=== PATIENT | female | born 1985 | race African-American/Black ===

== ENCOUNTER 2025-05-20 16:01 | Emergency (ER) | payer OTHER ==
--- NOTE | 2025-05-20 16:29 | EDPHYS ---
Physician Documentation [facility] Name: Norma Sepulveda Age: 40 yrs Sex: Female : 1985 Arrival Date: 05/20/2025 Time: 16:01 Bed IW1 Private MD: ED Physician Humberto Clifton HPI: 05/20 16:31 This 40 yrs old Black Female presents to ER via Ambulatory with complaints of Flu sb4 Symptoms. 16:31 Patient reports nasal congestion, sinus pressure, ear fullness for a few days now. She sb4 states that her symptoms all began after being on a cruise. Denies any fever, chills, cough, nausea, vomiting, diarrhea. States that none of her friends that are on the cruise have similar symptoms. Denies any chest pain or shortness of breath. 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 - Infectious Disease History:: Denies. - Social history:: Smoking status: Patient denies any tobacco usage or history of. ROS: 16:31 Constitutional: Negative for fever, chills, and weight loss, sb4 16:31 ENT: Positive for sinus congestion, sinus pain, sore throat, 16:31 All other systems are negative, Exam: 16:31 Constitutional: This is a well developed, well nourished patient who is awake, alert, sb4 and in no acute distress. Eyes: Extra-ocular motions intact. Periorbital areas with no swelling, redness, or edema. Cardiovascular: Regular rate and rhythm with a normal S1 and S2. Respiratory: No increased work of breathing, no retractions or nasal flaring. Skin: Warm, dry with normal turgor. Normal color with no rashes, no lesions, and no evidence of cellulitis. 16:31 Head/face: Sinus tenderness, that is mild, is located over the right frontal sinus, left frontal sinus, right ethmoid sinus, left ethmoid sinus, right maxillary sinus and left maxillary sinus, 16:31 ENT: Posterior pharynx: Tonsils: bilaterally enlarged, no erythema, no exudate, no ulcerations, Vital Signs: 16:25 BP 150 / 97; Pulse 86; Resp 18; Temp 98.2(O); Pulse Ox 96% ; db MDM: 16:11 Medical Screening Exam initiated sb4 16:33 Data reviewed: vital signs, nurses notes, and as a result, I will discharge patient. sb4 Counseling: I had a detailed discussion with the patient and/or guardian regarding the historical points, exam findings, and any diagnostic results supporting the discharge/admit diagnosis, the need for outpatient follow up, for definitive care, to return to the emergency department if symptoms worsen or persist or if there are any questions or concerns that arise at home. 16:56 Test considered but Not performed: Labs: swabs not required, clinical diagnosis of sb4 sinusitis. X-ray: chest xray not indicated, very minor cough, only at night, breath sounds are clear on auscultation. Care significantly affected by the following chronic conditions: Hypertension, Obesity. Administered Medications: 16:59 Drug: Dexamethasone IM 10 mg IM once Route: IM; Site: right deltoid; db 17:03 Follow up: Response: No adverse reaction db Disposition Summary: 05/20/25 16:29 Discharge Ordered Notes: Location: Home sb4 Problem: new sb4 Symptoms: have improved sb4 Condition: Stable sb4 Diagnosis - Acute sinusitis, unspecified sb4 Followup: sb4 - With: Emergency Department - When: As needed - Reason: Trouble breathing, Worsening of condition Discharge Instructions: - Discharge Summary Sheet sb4 - Sinusitis, Adult, [id number] sb4 Forms: - Work release form sb4 - Antibiotic Education sb4 - Patient Portal Instructions sb4 - Leadership Thank You Letter sb4 Prescriptions: - Augmentin 875-125 mg Oral tablet - take 1 tablet ORAL route every 12 hours for 7 days; 14 tablet; Refills: 0, sb4 Product Selection Permitted Addendum: 05/30/2025 08:03 Co-signature as Attending Physician, Humberto Clifton MD I agree with the assessment and c bal plan of care. Signatures: Humberto Clifton MD MD cha Benton, Danielle, RN RN Josephine Rod PA-C PA-C sb4
--- NOTE | 2025-05-20 16:29 | ER ---
Nurse's Notes [facility] Name: Norma Sepulveda Age: 40 yrs Sex: Female : 1985 Arrival Date: 05/20/2025 Time: 16:01 Bed IW1 Private MD: Diagnosis: Acute sinusitis, unspecified Presentation: 05/20 16:25 Chief complaint: Patient states: COUGH, CONGESTION, COLD, PRESSURE IN EARS, SINCE db WEDNESDAY. STATES RETURNED BACK FROM A [place]UISE AND STARTED FEELING SICK. Coronavirus screen: Client denies travel out of the [place] in the last 14 days. At this time, the client does not indicate any symptoms associated with coronavirus-19. Ebola Screen: Patient negative for fever greater than or equal to 101.5 degrees Fahrenheit, and additional compatible Ebola Virus Disease symptoms Patient denies exposure to infectious person. Patient denies travel to an Ebola-affected area in the 21 days before illness onset. No symptoms or risks identified at this time. Initial Sepsis Screen: Does the patient meet any 2 criteria? No. Patient's initial sepsis screen is negative. Does the patient have a suspected source of infection? No. Patient's initial sepsis screen is negative. Risk Assessment: Do you want to hurt yourself or someone else? Patient reports no desire to harm self or others. Onset of symptoms was May 18, 2025. 16:25 Method Of Arrival: Ambulatory db 16:25 Acuity: JOEL 4 db Triage Assessment: 16:27 General: Appears in no apparent distress. uncomfortable, Behavior is calm, cooperative. db Pain: Complains of pain in face. EENT: Reports nasal congestion nasal discharge. Neuro: Level of Consciousness is awake, alert, obeys commands, Oriented to person, place, time, situation. Respiratory: Airway is patent Respiratory effort is even, unlabored, Respiratory pattern is regular, symmetrical. 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 - Infectious Disease History:: Denies. - Social history:: Smoking status: Patient denies any tobacco usage or history of. Screenin:03 [facility] ED Fall Risk Assessment (Adult) History of falling in the last 3 months, db including since admission No falls in past 3 months (0 pts) Confusion or Disorientation No (0 pts) Intoxicated or Sedated No (0 pts) Impaired Gait No (0 pts) Mobility Assist Device Used No (0 pt) Altered Elimination No (0 pt) Score/Fall Risk Level 0 - 2 = Low Risk Oriented to surroundings, Maintained a safe environment. Abuse screen: Denies threats or abuse. Denies injuries from another. Nutritional screening: No deficits noted. Tuberculosis screening: No symptoms or risk factors identified. Assessment: 17:03 Reassessment: Patient appears in no apparent distress at this time. Patient and/or db family updated on plan of care and expected duration. Pain level reassessed. Patient is alert, oriented x 3, equal unlabored respirations, skin warm/dry/pink. Vital Signs: 16:25 BP 150 / 97; Pulse 86; Resp 18; Temp 98.2(O); Pulse Ox 96% ; db ED Course: 16:10 Patient arrived in ED. cj3 16:11 [facility] Bianchi [facility] sb4 16:11 Humberto Clifton MD is Attending Physician. sb4 16:26 Triage completed. db 16:27 Arm band placed on right wrist. db 17:03 Patient has correct armband on for positive identification. Provided Education on: db DISCHARGE. 17:03 No provider procedures requiring assistance completed. Patient did not have IV access db during this emergency room visit. Administered Medications: 16:59 Drug: Dexamethasone IM 10 mg IM once Route: IM; Site: right deltoid; db 17:03 Follow up: Response: No adverse reaction db Medication: 17:03 VIS not applicable for this client. db Outcome: 16:29 Discharge ordered by . sb4 17:03 Discharged to home ambulatory, db 17:03 Condition: stable 17:03 Discharge instructions given to patient, Instructed on discharge instructions, follow up and referral plans. Prescriptions given X 1, 17:04 Patient left the ED. db Signatures: Елена Burnette RN RN Josephine Rod PA-C PA-C sb4 Keisha Damico cj3 Corrections: (The following items were deleted from the chart) 16:26 16:25 Chief complaint: Patient states: CONGESTION, COLD, SINCE WEDNESDAY. STATES RETURNED db BACK FROM A CRUISE AND STARTED FEELING SICK db
[2025-05-20 17:13] VITALS: BP 150/97; TEMP 98.2; O2SAT 96
== END 2025-05-20 17:04 | disposition home or self-care (01) ==
LOC: ER 16:01
DX: J01.90 Acute sinusitis, unspecified (principal)
CPT/HCPCS: 96372; 99284; J1100